=== PATIENT | male | born 1970 | race Caucasian/White ===

== ENCOUNTER 2025-03-08 08:27 | Emergency (ER) | payer BC, SELFPAY ==
[2025-03-08 08:28] VITALS: BP 113/83
--- NOTE | 2025-03-08 10:16 | ED.GENMED ---
History of Present Illness
General
Chief Complaint: Fall
Source: patient
Exam Limitations: none
Time Seen by Provider: 03/08/25 10:15
Nursing documentation reviewed up to this point in time: agreed with
History of Present Illness
History of Present Illness:
Patient is a 55-year-old male who presents with right elbow pain. Patient reports yesterday he was walking outside and tripped and fell hitting his right elbow. He hit the right side of his face but denies loss of consciousness denies headache.
Denies neck pain. He is not on blood thinners. His only complaint is right elbow pain. He is right-hand dominant. He denies any lacerations or abrasions.
Past History
Past History
ED Past Medical History: GERD
ED Past Surgical History: None
Social History
Tobacco: Non-smoker
Personal:
Living: with family
Phy Exam
General Physical Exam
General Presentation: no apparent distress
General age: appears stated age
General Skin: warm and dry
General Habitus: normal
General Mental: alert
General Hydration: appears well hydrated
Neurological Exam
Neurological Exam: alert and oriented x3
Musculoskeletal Exam
Musculoskeletal Exam: other (Right upper extremity with no obvious swelling strong pulses mildly tender to proximal radius region normal loan collector strength normal sensation normal distal cap refill)
Skin Exam
Skin Exam: normal color and warm/dry
Psychiatric Exam
Psychiatric Exam: normal mood/affect
Course
Orders/Labs/Results
Orders:
Orders
03/08/25 08:31
Elbow, Right 3 View [CR Elbow - Right Min 3 Views] Urgent
Comment:
Reason For Exam: fall
03/08/25 10:19
Splints/Slings/Crut- Treatment ONCE
Location: Left
Type of Splint: Long Arm
03/08/25 10:20
Sling Left-Treatment ONCE
Vital Signs
Initial and Last Documented VS:
Initial Vital Signs
Temp Pulse Resp BP Pulse Ox
98.5 F 63 16 113/83 98
03/08/25 08:28 03/08/25 08:28 03/08/25 08:28 03/08/25 08:28 03/08/25 08:28
Last Documented Vital Signs
Temp Pulse Resp BP Pulse Ox
98.5 F 63 16 113/83 98
03/08/25 08:28 03/08/25 08:28 03/08/25 08:28 03/08/25 08:28 03/08/25 10:25
Procedures
Splint Check
Splint checked by provider?: Yes
Circulation/Movement/Sensation post splint application: brisk cap refill and full sensation
MDM/Problems Addressed
Differential Diagnosis Includes:
Not limited to : Fracture versus contusion
MDM/Problems Addressed:
Patient with an intra-articular radial head fracture. He hit his right elbow last night after tripping and falling. He does report he mildly had the right side of his facial cheek denies any other injury. He denies loss of conscious denies any
headache or neck pain. Not on blood thinners. Injury occurred last night we will hold off on any imaging of his head. He is a patient of orthopedics Dr. Crawford will DC with a posterior long-arm splint sling and outpatient Ortho follow-up.
*Radiology
Radiology exam reviewed: radiology read reviewed
*Pulse Oximetry
SaO2: 98
Oxygen Mode of Delivery: Room air
Patient hypoxic: no
*Critical Care Note
Total Time (30-74mins, 75-104mins- exclusive of procedures): Not Applicable
ED Attending Note
-
Portions of this chart may have been created with voice recognition software.� Occasional wrong word or��sound alike� substitutions may have occurred due to the inherent limitations of voice recognition software.
Discharge Plan
Departure
Patient Disposition: Home (Routine Discharge)
Date of Disposition: 03/08/25
Time of Disposition: 10:23
Patient with high blood pressure during this ER visit?: No
Condition: Fair
Covid-19: Not Applicable
Discharge Problem:
Elbow fracture, right
Instructions: Elbow Fracture, Adult ED, Splint care - ED (DC)
Prescriptions:
No Action
levetiracetam 500 MG tablet
500 mg PO DAILY
famotidine 20 MG tablet
20 mg PO DAILY
ibuprofen 200 MG tablet
600 mg PO QIDPRN PRN (Reason: pain) Qty: 1 0RF
oxycodone-acetaminophen 5 MG/325 MG tablet
1 tab PO Q4HPRN PRN (Reason: pain not relieved by ibuprofen) Qty: 10 0RF
Activity Restrictions/Additional Instructions:
As discussed you have a fracture right elbow. Wear splint until seen and evaluated by orthopedics. Call orthopedics today for an appointment in the next 2 days. Do not wet splint. Keep elevated as much as possible. You may alternate with
ibuprofen and Tylenol. Return if any worsening of symptoms of increased pain cold numb or blue fingers.
Interventions
Interventions:
*Risk Screen - Suicide Last Done: 03/08/25 08:28
*General Assessment Last Done: 03/08/25 10:22
*Neglect/Abuse Screening Last Done: 03/08/25 08:28
*ED COVID-19 Vaccine History Last Done: 03/08/25 10:22
*ED Influenza Vaccine History Last Done: 03/08/25 10:22
*Nursing Disposition Last Done: 03/08/25 10:53
ED-Musculoskeletal Assessment Last Done: 03/08/25 10:22
ED- Neurological Assessment Last Done: 03/08/25 10:22
ED-Skin Assessment Last Done: 03/08/25 10:22
Discharge Date and Time
Discharge Date/Time: 03/08/25 10:54
Print Language: ALGERIAN
== END 2025-03-08 10:54 | disposition home or self-care (01) ==
LOC: EMR 08:27
PROVIDERS: EMERGENCY PHYSICIAN Emergency Medicine; FAMILY PHYSICIAN Family Medicine
DX: S52.121A Displaced fracture of head of right radius, initial encounter for closed fracture (principal); W01.0XXA Fall on same level from slipping, tripping and stumbling without subsequent striking against object, initial encounter; Y93.01 Activity, walking, marching and hiking; K21.9 Gastro-esophageal reflux disease without esophagitis
CPT/HCPCS: 99283; 73080